=== PATIENT | male | born 1970 | race American Indian/Alaskan Native ===

== ENCOUNTER 2024-02-28 15:57 | Inpatient (IN) ==
[2024-02-28] MEDS ORDERED: IOPAMIDOL 100 ML BOTTLE IV ONE (15:58)
[2024-02-28] MEDS: 0.9 % SODIUM CHLORIDE 1,000 ML IV ONE (18:12)
[2024-02-28 18:20] LABS: ALT/SGPT 28 U/L (<40); AST/SGOT 53 U/L (<40); Albumin 3.4 gm/dL (3.2-5.2); Albumin/Globulin Ratio 0.9 (1.0-2.3); Alkaline Phosphatase 71 U/L (39-117); Bilirubin,Total 0.9 mg/dL (0.1-1.0); Blood Urea Nitrogen 22 mg/dL (6-20); Calcium 8.3 mg/dL (8.6-10.4); Carbon Dioxide 21 mmol/L (22-30); Chloride 90 mmol/L (96-108); Globulin 3.7 gm/dL (2.2-3.7); Glomerular Filtration Rate 76; Glucose 122 mg/dL (70-105); Thyroid Stimulating Hormone 2.74 uIU/mL (0.27-5.01)
[2024-02-28 18:22] LABS: Basophils # (Auto) 0 K/mcL (0.00-0.30); Basophils % (Auto) 0 % (0.0-2.0); Eosinophils # (Auto) 0 K/mcL (0.00-0.70); Eosinophils % (Auto) 0 % (0.0-7.0); Hematocrit 37.6 % (40.1-51.0); Hemoglobin 13.1 g/dL (13.7-17.5); Lymphocytes # (Auto) 0.29 K/mcL (1.50-4.80); Lymphocytes % (Auto) 5.5 % (15.5-49.0); Mean Cell Volume 86.6 fL (80.0-100.0); Mean Corpuscular HGB Conc 34.8 g/dL (31.0-36.0); Mean Platelet Volume 10.7 fL (8.8-12.5); Monocytes # (Auto) 0.08 K/mcL (0.10-0.90); Monocytes % (Auto) 1.5 % (1.0-12.0); Neutrophils % (Auto) 72.3 % (38.0-78.0); Platelet Count 44 K/mcL (140-440); RBC 4.34 M/mcL (4.63-6.08); Red Cell Distribution Width 13.2 % (11.5-14.5); WBC 5.3 K/mcL (4.5-11.0)
[2024-02-28] MEDS: ACETAMINOPHEN 325 MG TABLET PO ONE (18:33)
[2024-02-28] MEDS: ACETAMINOPHEN 500 MG TABLET PO ONE (18:39)
[2024-02-28] MEDS: LORazepam 2 MG/ML VIAL IV ONE ×3 (18:40→19:48)
[2024-02-28 18:46] LABS: Free T4 (Free Thyroxine) 1.37 ng/dL (0.93-1.70)
[2024-02-28] MEDS: POTASSIUM CHLORIDE 20 MEQ, MAGNESIUM SULFATE 16.24 MEQ, THIAMINE 100 MG, MVI, ADULT NO.... IV SCH (18:51)
[2024-02-28] MEDS: POTASSIUM CHLORIDE 20 MEQ/10 ML VIAL IV ONE (19:23)
[2024-02-28] MEDS: THIAMINE 100 MG/ML VIAL ONE ×2 (19:23→22:43)
[2024-02-28] MEDS: POTASSIUM CHLORIDE 20 MEQ, MAGNESIUM SULFATE 16.24 MEQ, THIAMINE 100 MG, MVI, ADULT NO.... IV ONE ×2 (19:24→19:29)
[2024-02-28] MEDS: MAGNESIUM SULFATE 8.12 MEQ/2 ML VIAL ONE (19:24)
[2024-02-28] MEDS: MVI, ADULT NO.4 WITH VIT K 10 ML VIAL IV ONE (19:24)
[2024-02-28] MEDS: POTASSIUM CHLORIDE 20 MEQ TABLET PO ONE (19:35)
[2024-02-28 20:09] LABS: Basophils # (Auto) 0 K/mcL (0.00-0.30); Basophils % (Auto) 0 % (0.0-2.0); Eosinophils # (Auto) 0 K/mcL (0.00-0.70); Eosinophils % (Auto) 0 % (0.0-7.0); Hematocrit 38.3 % (40.1-51.0); Hemoglobin 12.7 g/dL (13.7-17.5); Lymphocytes # (Auto) 0.38 K/mcL (1.50-4.80); Lymphocytes % (Auto) 8.4 % (15.5-49.0); Mean Cell Volume 90.3 fL (80.0-100.0); Mean Corpuscular HGB Conc 33.2 g/dL (31.0-36.0); Mean Platelet Volume 11.9 fL (8.8-12.5); Monocytes # (Auto) 0.12 K/mcL (0.10-0.90); Monocytes % (Auto) 2.6 % (1.0-12.0); Neutrophils % (Auto) 67.2 % (38.0-78.0); Platelet Count 43 K/mcL (140-440); RBC 4.24 M/mcL (4.63-6.08); Red Cell Distribution Width 13.4 % (11.5-14.5); WBC 4.5 K/mcL (4.5-11.0)
[2024-02-28 20:23] LABS: Partial Thromboplastin Time 31.7 sec (20.0-37.0)
[2024-02-28 20:24] LABS: INR 1.2 (0.9-1.1); Prothrombin Time 15.9 sec (11.9-14.5)
[2024-02-28] MEDS ORDERED: ONDANSETRON 4 MG/2 ML VIAL IV PRN (21:23)
[2024-02-28] MEDS: 0.9 % SODIUM CHLORIDE 10 ML SYRINGE IV SCH (22:00)
[2024-02-28] MEDS: THIAMINE 100 MG in 0.9 % SODIUM CHLORIDE 50 ML IV SCH (22:13)
[2024-02-28 23:01] LABS: Phosphorous 2.2 mg/dL (2.5-4.5)
[2024-02-28 23:03] LABS: Blood Urea Nitrogen 21 mg/dL (6-20); Calcium 6.4 mg/dL (8.6-10.4); Carbon Dioxide 20 mmol/L (22-30); Chloride 96 mmol/L (96-108); Glomerular Filtration Rate 102; Glucose 87 mg/dL (70-105)
[2024-02-28 23:22] LABS: Appearance,Urine Clear (Clear); Bilirubin,Urine Negative (Negative); Color,Urine Yellow; Culture Indicated,Urine Yes; Glucose,Urine (UA) Negative (Negative); Ketones,Urine 15 mg/dL (Negative); Leukocyte Esterase,Urine Negative /uL (Negative); Mucus,Urine Mod /hpf; Nitrate,Urine Negative (Negative); PH,Urine 5.5 (5.0-9.0); Protein,Urine 100 mg/dL (Negative); Specific Gravity,Urine 1.025 (1.000-1.035); Urine Blood Moderate ery/mcL (Negative); Urine Cellular Cast 1 /lph (0-0); Urine Hyaline Cast 11 /lph (0-2); Urine RBC 0 /hpf (0-3); Urine Squamous Epithelial Cell 0 /hpf (0-4); Urine WBC 15 /hpf (0-4)
[2024-02-28] MEDS: 0.9 % SODIUM CHLORIDE 1,000 ML IV SCH (23:23)
[2024-02-29] MEDS: SODIUM PHOSPHATE 15 MMOL in DEXTROSE 5% IN WATER 250 ML IV ONE (01:43)
[2024-02-29] MEDS: POTASSIUM CHLORIDE 20 MEQ TABLET PO ONE ×2 (01:43→02:26)
[2024-02-29] MEDS: LORazepam 2 MG/ML VIAL IV PRN ×2 (05:09→17:21)
[2024-02-29 07:37] LABS: ALT/SGPT 18 U/L (<40); AST/SGOT 35 U/L (<40); Albumin 2.7 gm/dL (3.2-5.2); Alkaline Phosphatase 53 U/L (39-117); Bilirubin,Total 0.5 mg/dL (0.1-1.0); Blood Urea Nitrogen 15 mg/dL (6-20); Calcium 7.5 mg/dL (8.6-10.4); Carbon Dioxide 21 mmol/L (22-30); Chloride 99 mmol/L (96-108); Globulin 2.8 gm/dL (2.2-3.7); Glomerular Filtration Rate 124; Glucose 88 mg/dL (70-105)
[2024-02-29 08:54] LABS: Basophils # (Auto) 0.02 K/mcL (0.00-0.30); Basophils % (Auto) 0.6 % (0.0-2.0); Eosinophils # (Auto) 0.01 K/mcL (0.00-0.70); Eosinophils % (Auto) 0.3 % (0.0-7.0); Hematocrit 28.7 % (40.1-51.0); Hemoglobin 9.6 g/dL (13.7-17.5); Lymphocytes # (Auto) 0.65 K/mcL (1.50-4.80); Lymphocytes % (Auto) 19.3 % (15.5-49.0); Mean Cell Volume 90.5 fL (80.0-100.0); Mean Corpuscular HGB Conc 33.4 g/dL (31.0-36.0); Mean Platelet Volume 10.9 fL (8.8-12.5); Monocytes # (Auto) 0.08 K/mcL (0.10-0.90); Monocytes % (Auto) 2.4 % (1.0-12.0); Neutrophils % (Auto) 60.7 % (38.0-78.0); Platelet Count 40 K/mcL (140-440); RBC 3.17 M/mcL (4.63-6.08); Red Cell Distribution Width 13.4 % (11.5-14.5); WBC 3.4 K/mcL (4.5-11.0)
[2024-02-29] MEDS: POTASSIUM CHLORIDE 20 MEQ TABLET PO SCH (09:18)
[2024-02-29] MEDS: DOCUSATE SODIUM 100 MG CAPSULE PO SCH (09:18)
[2024-02-29] MEDS: THIAMINE 100 MG in 0.9 % SODIUM CHLORIDE 50 ML IV SCH (10:30)
[2024-02-29] MEDS: POTASSIUM PHOSPHATE 40 MEQ in DEXTROSE 5% IN WATER 500 ML IV SCH (10:30)
[2024-02-29] MEDS: levETIRAcetam 500 MG TABLET PO SCH (17:21)
[2024-02-29] MEDS: FERROUS GLUCONATE 324 MG TABLET PO SCH (21:24)
[2024-02-29] MEDS: CARBAMAZEPINE 400 MG PO SCH (21:24)
[2024-02-29] MEDS: CYCLOSPORINE 0.05% OP SCH (21:24)
[2024-03-01 06:40] LABS: ALT/SGPT 18 U/L (<40); AST/SGOT 35 U/L (<40); Albumin 2.9 gm/dL (3.2-5.2); Albumin/Globulin Ratio 0.9 (1.0-2.3); Alkaline Phosphatase 58 U/L (39-117); Bilirubin,Total 0.4 mg/dL (0.1-1.0); Blood Urea Nitrogen 7 mg/dL (6-20); Calcium 7.9 mg/dL (8.6-10.4); Carbon Dioxide 26 mmol/L (22-30); Chloride 99 mmol/L (96-108); Globulin 3.1 gm/dL (2.2-3.7); Glomerular Filtration Rate 124; Glucose 113 mg/dL (70-105)
[2024-03-01 06:42] LABS: Basophils # (Auto) 0.01 K/mcL (0.00-0.30); Basophils % (Auto) 0.3 % (0.0-2.0); Eosinophils # (Auto) 0.02 K/mcL (0.00-0.70); Eosinophils % (Auto) 0.5 % (0.0-7.0); Hematocrit 29.2 % (40.1-51.0); Hemoglobin 9.9 g/dL (13.7-17.5); Lymphocytes # (Auto) 0.37 K/mcL (1.50-4.80); Lymphocytes % (Auto) 10.1 % (15.5-49.0); Mean Cell Volume 91.3 fL (80.0-100.0); Mean Corpuscular HGB Conc 33.9 g/dL (31.0-36.0); Mean Platelet Volume 10.5 fL (8.8-12.5); Monocytes # (Auto) 0.12 K/mcL (0.10-0.90); Monocytes % (Auto) 3.3 % (1.0-12.0); Neutrophils % (Auto) 85.3 % (38.0-78.0); Platelet Count 39 K/mcL (140-440); Red Cell Distribution Width 13.2 % (11.5-14.5); WBC 3.7 K/mcL (4.5-11.0)
[2024-03-01] MEDS: ACETAMINOPHEN 1,000 MG/100 ML BAG IV PRN (08:46)
[2024-03-01] MEDS: FOLIC ACID 1 MG TABLET PO SCH (10:14)
[2024-03-01] MEDS: METHOTREXATE SODIUM 2.5 MG TABLET PO SCH (10:15)
[2024-03-01] MEDS: POTASSIUM PHOSPHATE 40 MEQ in DEXTROSE 5% IN WATER 500 ML IV SCH (11:43)
[2024-03-01] MEDS: SODIUM CHLORIDE 0.9% IV SCH (11:43)
[2024-03-01] MEDS: LEVETIRACETAM IV SCH (11:43)
[2024-03-01] MEDS: levETIRAcetam 2,000 MG in 0.9 % SODIUM CHLORIDE 100 ML IV SCH (11:57)
[2024-03-01] MEDS: PNEUMOCOCCAL 23-VAL P-SAC VAC 0.5 ML SYRINGE IM ONE (16:47)
[2024-03-01 17:57] LABS: Phosphorous 3.4 mg/dL (2.5-4.5)
[2024-03-02 06:42] LABS: ALT/SGPT 13 U/L (<40); AST/SGOT 26 U/L (<40); Albumin 2.9 gm/dL (3.2-5.2); Albumin/Globulin Ratio 0.9 (1.0-2.3); Alkaline Phosphatase 56 U/L (39-117); Bilirubin,Total 0.6 mg/dL (0.1-1.0); Blood Urea Nitrogen 7 mg/dL (6-20); Calcium 8.3 mg/dL (8.6-10.4); Carbon Dioxide 24 mmol/L (22-30); Chloride 99 mmol/L (96-108); Globulin 3.3 gm/dL (2.2-3.7); Glomerular Filtration Rate 136; Glucose 84 mg/dL (70-105)
[2024-03-02 07:15] LABS: Basophils # (Auto) 0.02 K/mcL (0.00-0.30); Basophils % (Auto) 0.5 % (0.0-2.0); Eosinophils # (Auto) 0.01 K/mcL (0.00-0.70); Eosinophils % (Auto) 0.3 % (0.0-7.0); Hematocrit 32.7 % (40.1-51.0); Hemoglobin 10.8 g/dL (13.7-17.5); Lymphocytes # (Auto) 0.74 K/mcL (1.50-4.80); Lymphocytes % (Auto) 20.3 % (15.5-49.0); Mean Cell Volume 90.8 fL (80.0-100.0); Mean Platelet Volume 9.7 fL (8.8-12.5); Monocytes # (Auto) 0.39 K/mcL (0.10-0.90); Monocytes % (Auto) 10.7 % (1.0-12.0); Platelet Count 48 K/mcL (140-440); Red Cell Distribution Width 13.4 % (11.5-14.5); WBC 3.7 K/mcL (4.5-11.0)
[2024-03-02] MEDS: METHOTREXATE SODIUM 2.5 MG TABLET PO ONE (09:03)
[2024-03-02] MEDS ORDERED: VANCOMYCIN PER PHARMACY IV SCH (11:22)
[2024-03-02] MEDS: POTASSIUM PHOSPHATE 20 MEQ in DEXTROSE 5% IN WATER 250 ML IV ONE (11:50)
[2024-03-02] MEDS: GABAPENTIN 100 MG CAPSULE PO SCH (11:51)
[2024-03-02] MEDS: LORazepam 1 MG TABLET PO ONE (11:51)
[2024-03-02] MEDS: VANCOMYCIN 1,500 MG in 0.9 % SODIUM CHLORIDE 500 ML IV SCH (14:10)
[2024-03-02 18:29] LABS: Crystals,Body Fluid Ca Pyrophosphate (None Seen)
[2024-03-02 18:48] LABS: Appearance,Synovial Fluid Turbid; Color,Synovial Fluid Red; Neutrophils,Synovial Fluid 91 % (0-25); Nucleated Cells,Synovial Fld 133700 /cumm; Other Cells,Synovial Fluid 9 %
[2024-03-03 07:32] LABS: Basophils # (Auto) 0.02 K/mcL (0.00-0.30); Eosinophils # (Auto) 0.08 K/mcL (0.00-0.70); Eosinophils % (Auto) 3.9 % (0.0-7.0); Hematocrit 24.9 % (40.1-51.0); Hemoglobin 8.4 g/dL (13.7-17.5); Lymphocytes # (Auto) 0.47 K/mcL (1.50-4.80); Lymphocytes % (Auto) 22.7 % (15.5-49.0); Mean Cell Volume 91.5 fL (80.0-100.0); Mean Corpuscular HGB Conc 33.7 g/dL (31.0-36.0); Mean Platelet Volume 9.8 fL (8.8-12.5); Monocytes # (Auto) 0.12 K/mcL (0.10-0.90); Monocytes % (Auto) 5.8 % (1.0-12.0); Neutrophils % (Auto) 66.1 % (38.0-78.0); Platelet Count 45 K/mcL (140-440); RBC 2.72 M/mcL (4.63-6.08); Red Cell Distribution Width 13.4 % (11.5-14.5); WBC 2.1 K/mcL (4.5-11.0)
[2024-03-03 08:26] LABS: INR 1.1 (0.9-1.1); Prothrombin Time 15.3 sec (11.9-14.5)
[2024-03-03 09:15] LABS: ALT/SGPT 14 U/L (<40); AST/SGOT 23 U/L (<40); Albumin 2.4 gm/dL (3.2-5.2); Albumin/Globulin Ratio 0.8 (1.0-2.3); Alkaline Phosphatase 43 U/L (39-117); Bilirubin,Total 0.4 mg/dL (0.1-1.0); Blood Urea Nitrogen 4 mg/dL (6-20); Calcium 7.7 mg/dL (8.6-10.4); Carbon Dioxide 26 mmol/L (22-30); Chloride 100 mmol/L (96-108); Globulin 2.9 gm/dL (2.2-3.7); Glomerular Filtration Rate 136; Glucose 126 mg/dL (70-105)
[2024-03-03] MEDS: POTASSIUM CHLORIDE 20 MEQ TABLET PO ONE ×2 (09:34→12:19)
[2024-03-03] MEDS: POTASSIUM PHOSPHATE 40 MEQ in DEXTROSE 5% IN WATER 500 ML IV ONE (11:04)
[2024-03-03] MEDS: PNEUMOCOCCAL 23-VAL P-SAC VAC 0.5 ML SYRINGE IM ONE (12:22)
[2024-03-03] MEDS: 0.9 % SODIUM CHLORIDE 250 ML IV SCH ×2 (17:05→17:06)
[2024-03-03] MEDS: levETIRAcetam 500 MG TABLET PO SCH (20:13)
[2024-03-04 06:27] LABS: Basophils # (Auto) 0.01 K/mcL (0.00-0.30); Basophils % (Auto) 0.5 % (0.0-2.0); Eosinophils # (Auto) 0.09 K/mcL (0.00-0.70); Eosinophils % (Auto) 4.2 % (0.0-7.0); Hematocrit 25.5 % (40.1-51.0); Hemoglobin 8.7 g/dL (13.7-17.5); Lymphocytes # (Auto) 0.51 K/mcL (1.50-4.80); Lymphocytes % (Auto) 23.8 % (15.5-49.0); Mean Cell Volume 90.1 fL (80.0-100.0); Mean Corpuscular HGB Conc 34.1 g/dL (31.0-36.0); Mean Platelet Volume 9.5 fL (8.8-12.5); Monocytes # (Auto) 0.17 K/mcL (0.10-0.90); Monocytes % (Auto) 7.9 % (1.0-12.0); Neutrophils % (Auto) 63.1 % (38.0-78.0); Platelet Count 112 K/mcL (140-440); RBC 2.83 M/mcL (4.63-6.08); Red Cell Distribution Width 13.2 % (11.5-14.5); WBC 2.1 K/mcL (4.5-11.0)
[2024-03-04 06:53] LABS: Prothrombin Time 14.1 sec (11.9-14.5)
[2024-03-04 06:58] LABS: ALT/SGPT 31 U/L (<40); AST/SGOT 39 U/L (<40); Albumin 2.8 gm/dL (3.2-5.2); Alkaline Phosphatase 47 U/L (39-117); Bilirubin,Direct < 0.2 mg/dL (0-0.3); Bilirubin,Total 0.4 mg/dL (0.1-1.0); Blood Urea Nitrogen 3 mg/dL (6-20); Calcium 8.2 mg/dL (8.6-10.4); Carbon Dioxide 26 mmol/L (22-30); Chloride 100 mmol/L (96-108); Globulin 2.9 gm/dL (2.2-3.7); Glomerular Filtration Rate 136; Glucose 105 mg/dL (70-105); Lactate Dehydrogenase 161 U/L (135-225); Phosphorous 2.6 mg/dL (2.5-4.5); Triglycerides 89 mg/dL (<150); Uric Acid 2.7 mg/dL (2.5-8.0)
[2024-03-04] MEDS ORDERED: chlordiazePOXIDE 25 MG CAPSULE PO PRN (07:34)
[2024-03-04] MEDS ORDERED: PROPOFOL 200 MG/20 ML VIAL IV ONE (07:37)
[2024-03-04] MEDS ORDERED: DEXMEDETOMIDINE HCL 200 MCG/2 ML VIAL ONE (08:02)
[2024-03-04] MEDS ORDERED: DEXAMETHASONE 10 MG/ML VIAL ONE (08:02)
[2024-03-04] MEDS ORDERED: GLYCOPYRROLATE 0.2 MG/ML VIAL IV ONE (08:02)
[2024-03-04] MEDS ORDERED: ONDANSETRON 4 MG/2 ML VIAL ONE (08:02)
[2024-03-04] MEDS ORDERED: KETAMINE 50 MG/ML Syringe IV ONE (08:02)
[2024-03-04] MEDS ORDERED: LIDOCAINE 2% PF 5 ML VIAL ONE (08:21)
[2024-03-04] MEDS ORDERED: TRANEXAMIC ACID 1,000 MG/10 ML VIAL ONE (08:39)
[2024-03-04] MEDS ORDERED: ROCURONIUM 10 MG/ML ML IV ONE (08:40)
[2024-03-04] MEDS ORDERED: SUGAMMADEX SODIUM 200 MG/2 ML VIAL IV ONE (08:40)
[2024-03-04] MEDS ORDERED: fentaNYL 100 MCG/2 ML VIAL ONE (08:46)
[2024-03-04] MEDS: VANCOMYCIN 1 GM VIAL TOPICAL SCH (08:56)
[2024-03-04] MEDS ORDERED: MIDAZOLAM 2 MG/2 ML VIAL ONE ×2 (09:08)
[2024-03-04] MEDS: VANCOMYCIN 1,500 MG in 0.9 % SODIUM CHLORIDE 500 ML IV SCH (10:01)
[2024-03-04] MEDS: POTASSIUM CHLORIDE 20 MEQ TABLET PO ONE (10:43)
[2024-03-04] MEDS: MAGNESIUM SULFATE 2 GM/50 ML BAG IV ONE (10:46)
[2024-03-05 07:00] LABS: ALT/SGPT 43 U/L (<40); AST/SGOT 60 U/L (<40); Albumin 2.8 gm/dL (3.2-5.2); Alkaline Phosphatase 54 U/L (39-117); Bilirubin,Direct < 0.2 mg/dL (0-0.3); Bilirubin,Total 0.2 mg/dL (0.1-1.0); Blood Urea Nitrogen 3 mg/dL (6-20); Calcium 7.9 mg/dL (8.6-10.4); Carbon Dioxide 24 mmol/L (22-30); Chloride 102 mmol/L (96-108); Globulin 2.8 gm/dL (2.2-3.7); Glomerular Filtration Rate 136; Glucose 124 mg/dL (70-105); Lactate Dehydrogenase 307 U/L (135-225); Phosphorous 2.7 mg/dL (2.5-4.5); Triglycerides 97 mg/dL (<150); Uric Acid 2.4 mg/dL (2.5-8.0)
[2024-03-05] MEDS: LINEZOLID 600 MG TABLET PO ONE (07:04)
[2024-03-05 08:49] LABS: Basophils # (Auto) 0.01 K/mcL (0.00-0.30); Basophils % (Auto) 0.3 % (0.0-2.0); Eosinophils # (Auto) 0.16 K/mcL (0.00-0.70); Eosinophils % (Auto) 5.1 % (0.0-7.0); Hematocrit 28.7 % (40.1-51.0); Hemoglobin 9.4 g/dL (13.7-17.5); Lymphocytes # (Auto) 0.62 K/mcL (1.50-4.80); Lymphocytes % (Auto) 19.8 % (15.5-49.0); Mean Cell Volume 90.8 fL (80.0-100.0); Mean Corpuscular HGB Conc 32.8 g/dL (31.0-36.0); Mean Platelet Volume 8.9 fL (8.8-12.5); Monocytes # (Auto) 0.17 K/mcL (0.10-0.90); Monocytes % (Auto) 5.4 % (1.0-12.0); Neutrophils % (Auto) 69.4 % (38.0-78.0); Platelet Count 163 K/mcL (140-440); RBC 3.16 M/mcL (4.63-6.08); Red Cell Distribution Width 13.4 % (11.5-14.5); WBC 3.1 K/mcL (4.5-11.0)
[2024-03-05] MEDS: ENOXAPARIN 40 MG/0.4 ML SYRINGE SQ SCH (08:51)
[2024-03-05] MEDS: THIAMINE 100 MG TABLET PO SCH (10:08)
[2024-03-05] MEDS: ACETAMINOPHEN 325 MG TABLET PO PRN (10:08)
[2024-03-06 07:35] LABS: Basophils # (Auto) 0.01 K/mcL (0.00-0.30); Basophils % (Auto) 0.3 % (0.0-2.0); Eosinophils # (Auto) 0.12 K/mcL (0.00-0.70); Eosinophils % (Auto) 3.5 % (0.0-7.0); Hematocrit 29.6 % (40.1-51.0); Hemoglobin 9.5 g/dL (13.7-17.5); Lymphocytes # (Auto) 0.72 K/mcL (1.50-4.80); Lymphocytes % (Auto) 21.2 % (15.5-49.0); Mean Cell Volume 92.2 fL (80.0-100.0); Mean Corpuscular HGB Conc 32.1 g/dL (31.0-36.0); Mean Platelet Volume 9.2 fL (8.8-12.5); Monocytes # (Auto) 0.24 K/mcL (0.10-0.90); Monocytes % (Auto) 7.1 % (1.0-12.0); Neutrophils % (Auto) 67.3 % (38.0-78.0); Platelet Count 190 K/mcL (140-440); RBC 3.21 M/mcL (4.63-6.08); Red Cell Distribution Width 13.7 % (11.5-14.5); WBC 3.4 K/mcL (4.5-11.0)
[2024-03-06] MEDS ORDERED: THIAMINE 100 MG TABLET PO SCH (10:00)
[2024-03-07] MEDS ORDERED: ERGOCALCIFEROL (VITAMIN D2) 50,000 UNIT CAPSULE PO SCH (09:00)
[2024-03-07] MEDS ORDERED: ETANERCEPT 50 MG/ML SUB-Q SCH (09:00)
== END 2024-03-06 13:20 | DRG 897 ==
LOC: ED 15:57 → ICU 23:51 → MEDSUR 03-04 20:08
PROVIDERS: ADMIT Student in an Organized Health Care Education/Training Program; ATTEND Student in an Organized Health Care Education/Training Program